=== PATIENT | male | born 1990 | race Caucasian/White ===

== ENCOUNTER 2018-12-14 18:13 | Emergency (ER) | payer SELFPAY ==
[2018-12-14] MEDS ORDERED: SODIUM CHLORIDE 1,000 ML IV STA (18:41)
--- NOTE | 2018-12-14 18:41 | PDOC ---
Rapid Medical Evaluation Time Seen by Provider: 12/14/18 18:38 Medical Evaluation: 12/14/18 18:38 I have performed a brief in-person evaluation of this patient. The patient presents with a chief complaint of: 3 days of NBNB intractable vomiting with periumbilical abdominal pain, no diarrhea, no urinary symptoms, tactile fever, Unable to eat. I have ordered the following: CBC, CMP, Type and screen, PT'PTT, UA, Ucx The patient will proceed to the ED for further evaluation. Discharge Disposition - Diagnosis Abdominal pain Qualifiers: Abdominal location: unspecified location Qualified Code(s): R10.9 - Unspecified abdominal pain - Referrals - Patient Instructions - Post Discharge Activity
[2018-12-14] MEDS ORDERED: ONDANSETRON 4 MG/2 ML VIAL IVPUSH ONE (18:42)
[2018-12-14 18:47] VITALS: TEMP 98.8; BMI 26.2
[2018-12-14 19:25] LABS: BASO % 0.5 % (0-2.0); HEMATOCRIT 51.5 % (35.4-49); HEMOGLOBIN 17.6 GM/dL (11.7-16.9); LYMPH % 11.1 % (8-40); MCHC 34.3 g/dl (32.0-35.9); MEAN CELL VOLUME 90.6 fl (80-96); NEUT % 82.4 % (42.8-82.8); PLATELET COUNT 286 K/MM3 (134-434); RBC 5.68 M/mm3 (4.00-5.60); RDW 13.3 % (11.9-15.9); WHITE BLOOD COUNT 16.4 K/mm3 (4.0-10.0)
[2018-12-14 19:28] LABS: EPI CELLS 5.7 /HPF (0-5/HPF); HYALINE CASTS 41 /lpf (0-8); URINE APPEARANCE CLEAR; URINE BACTERIA 4.1 /hpf (NEGATIVE); URINE BILIRUBIN NEGATIVE (NEGATIVE); URINE COLOR YELLOW; URINE GLUCOSE (UA) NEGATIVE (NEGATIVE); URINE KETONE 1+ (NEGATIVE); URINE LEUK ESTERASE TRACE (NEGATIVE); URINE NITRITE NEGATIVE (NEGATIVE); URINE PROTEIN 1+ (NEGATIVE); URINE RBC 3 /hpf (0-4); URINE UROBILINOGEN 0.2 mg/dL (0.2-1.0); URINE WBC 14 /hpf (0-5)
[2018-12-14 19:47] LABS: ALBUMIN 4.7 g/dl (3.4-5.0); BILIRUBIN,TOTAL 0.6 mg/dL (0.2-1); BLOOD UREA NITROGEN 8.6 mg/dL (7-18); CALCIUM 9.5 mg/dL (8.5-10.1); CREATININE 0.9 mg/dL (0.55-1.3); MAGNESIUM 2.3 mg/dL (1.8-2.4); PHOSPHOROUS 2.6 mg/dL (2.5-4.9); POTASSIUM 3.7 mmol/L (3.5-5.1); TOT PROT 8.2 g/dl (6.4-8.2)
[2018-12-14 20:00] LABS: INR 1.01 (0.83-1.09); PROTHROMBIN TIME (PATIENT) 11.9 SEC (9.7-13.0)
[2018-12-14] MEDS ORDERED: ONDANSETRON 4 MG/2 ML VIAL ONE (21:00)
--- NOTE | 2018-12-14 21:10 | PDOC ---
History of Present Illness - General Chief Complaint: Pain, Acute Stated Complaint: ABDOMINAL PAIN Time Seen by Provider: 12/14/18 18:38 Past History - Past Medical History Allergies/Adverse Reactions: Allergies Allergy/AdvReac Type Severity Reaction Status Date / Time No Known Allergies Allergy Verified 12/14/18 18:40 Home Medications: Ambulatory Orders Ondansetron [Zofran Odt -] 4 mg SL TID #10 od.tablet 12/15/18 COPD: No - Suicide/Smoking/Psychosocial Hx Smoking History: Current every day smoker Number of Cigarettes Smoked Daily: 1 Information on smoking cessation initiated: No Hx Alcohol Use: No Drug/Substance Use Hx: Yes (CANNABIS) *Physical Exam - Vital Signs Last Vital Signs Temp Pulse Resp BP Pulse Ox 98.8 F 80 16 148/98 99 12/14/18 18:36 12/14/18 18:36 12/14/18 18:36 12/14/18 18:36 12/14/18 18:36 ED Treatment Course - LABORATORY CBC & Chemistry Diagram: 12/14/18 19:04 12/14/18 19:04 - ADDITIONAL ORDERS Additional order review: Laboratory Results 12/14/18 12/14/18 12/14/18 19:04 19:04 19:04 PT with INR 11.90 INR 1.01 Sodium Potassium Chloride Carbon Dioxide Anion Gap BUN Creatinine Est GFR (CKD-EPI)AfAm Est GFR (CKD-EPI)NonAf Random Glucose Calcium Phosphorus Magnesium Total Bilirubin AST ALT Alkaline Phosphatase Total Protein Albumin Lipase Urine Color Yellow Urine Appearance Clear Urine pH 6.0 Ur Specific Pearcy 1.026 Urine Protein 1+ H Urine Glucose (UA) Negative Urine Ketones 1+ H Urine Blood Negative Urine Nitrite Negative Urine Bilirubin Negative Urine Urobilinogen 0.2 Ur Leukocyte Esterase Trace Urine WBC (Auto) 14 Urine RBC (Auto) 3 Urine Casts (Auto) 41 U Pathogenic Cast Auto None U Epithel Cells (Auto) 5.7 U Sm Round Cell (Auto) None Urine Bacteria (Auto) 4.1 Blood Type O POSITIVE Antibody Screen Negative 12/14/18 19:04 PT with INR INR Sodium 138 Potassium 3.7 Chloride 101 Carbon Dioxide 29 Anion Gap 7 L BUN 8.6 Creatinine 0.9 Est GFR (CKD-EPI)AfAm 134.24 Est GFR (CKD-EPI)NonAf 115.82 Random Glucose 134 H Calcium 9.5 Phosphorus 2.6 Magnesium 2.3 Total Bilirubin 0.6 AST 21 ALT 35 Alkaline Phosphatase 80 Total Protein 8.2 Albumin 4.7 Lipase 114 Urine Color Urine Appearance Urine pH Ur Specific Pearcy Urine Protein Urine Glucose (UA) Urine Ketones Urine Blood Urine Nitrite Urine Bilirubin Urine Urobilinogen Ur Leukocyte Esterase Urine WBC (Auto) Urine RBC (Auto) Urine Casts (Auto) U Pathogenic Cast Auto U Epithel Cells (Auto) U Sm Round Cell (Auto) Urine Bacteria (Auto) Blood Type Antibody Screen 12/14/18 19:04 RBC 5.68 H MCV 90.6 MCHC 34.3 RDW 13.3 MPV 9.0 Neutrophils % 82.4 Lymphocytes % 11.1 Monocytes % 6.0 Eosinophils % 0.0 Basophils % 0.5 Medical Decision Making - Medical Decision Making HPI: 28yo M with no significant PMH presenting with abdominal, nausea, and vomiting. Patient states he has felt this pain before; was evaluated two years ago and was found to have a urine infection. Since Thursday, patient has had periumbilical abdominal pain that is described as "emptiness." He reports that his pain worsens with eating. patient has been unable to tolerate po intake. He has had bilious vomiting 8-10 times today. Last bowel movement was a half hour before history-taking and was a normaly formed brown stool without blood. Denies urinary symptoms. No sick contacts or recent travel. Denies ETOH or tobacco use but has been a daily marijauna smoker, about one joint per day for the past five years. Reports subjective fevers, chills, headache, and weakness. No chest pain or shortness of breath. PCP: None History obtained with assistance from [employer] interpreter for the deaf: [id number] ROS: Constitutional: +fever, +chills HEENT: no throat pain, no dysphagia Cardiovascular: no chest pain, no palpitations Respiratory: no cough, no shortness of breath Gastrointestinal: +abdominal pain, +vomiting Genitourinary: no dysuria, no hematuria Musculoskeletal: no myalgia, no arthralgia Skin: no rash, no itching Neurologic: no headache, no weakness PE: General: Awake, alert, and fully oriented, in no acute distress Head: No signs of trauma Eyes: EOMI, sclera anicteric ENT: Dry mucus membranes Neck: Normal ROM, supple Lungs: Lungs clear, Normal breath sounds Cardio: Regular rhythm, S1 and S2 present Abdomen: Diffuse tenderness to palpation most focal to periumbilical region. No guarding, no rebound, no masses. No CVA tenderness Extremities: Normal range of motion, Distal pulses present SKIN: Warm, Dry, normal turgor Neurologic: Cranial nerves II through XII grossly intact. Normal speech ED Course/MDM: DDX including but not limited to appendicitis, gastritis, GERD, UTI, pyelonephritis, pancreatitis, cannabis hyperemesis 12/14/18 21:09 CBC WBC 16.4 K/mm3 (4.0-10.0) H 12/14/18 19:04 RBC 5.68 M/mm3 (4.00-5.60) H 12/14/18 19:04 Hgb 17.6 GM/dL (11.7-16.9) H 12/14/18 19:04 Hct 51.5 % (35.4-49) H 12/14/18 19:04 MCV 90.6 fl (80-96) 12/14/18 19: MCH 31.0 pg (25.7-33.7) 12/14/18 19:04 MCHC 34.3 g/dl (32.0-35.9) 12/14/18 19: RDW 13.3 % (11.9-15.9) 12/14/18 19: Plt Count 286 K/MM3 (134-434) 12/14/18 19:04 MPV 9.0 fl (7.5-11.1) 12/14/18 19:04 Absolute Neuts (auto) 13.5 K/mm3 (1.5-8.0) H 12/14/18 19:04 Neutrophils % 82.4 % (42.8-82.8) 12/14/18 19:04 Lymphocytes % 11.1 % (8-40) 12/14/18 19: Monocytes % 6.0 % (3.8-10.2) 12/14/18 19: Eosinophils % 0.0 % (0-4.5) 12/14/18 19:04 Basophils % 0.5 % (0-2.0) 12/14/18 19: Nucleated RBC % 0 % (0-0) 12/14/18 19:04 Leukocytosis, WBC= 16.4 CMP Sodium 138 mmol/L (136-145) 12/14/18 19:04 Potassium 3.7 mmol/L (3.5-5.1) 12/14/18 19:04 Chloride 101 mmol/L (98-107) 12/14/18 19:04 Carbon Dioxide 29 mmol/L (21-32) 12/14/18 19:04 Anion Gap 7 MMOL/L (8-16) L 12/14/18 19:04 BUN 8.6 mg/dL (7-18) 12/14/18 19:04 Creatinine 0.9 mg/dL (0.55-1.3) 12/14/18 19:04 Est GFR (CKD-EPI)AfAm 134.24 12/14/18 19:04 Est GFR (CKD-EPI)NonAf 115.82 12/14/18 19:04 Random Glucose 134 mg/dL (74-106) H 12/14/18 19:04 Calcium 9.5 mg/dL (8.5-10.1) 12/14/18 19:04 Phosphorus 2.6 mg/dL (2.5-4.9) 12/14/18 19:04 Magnesium 2.3 mg/dL (1.8-2.4) 12/14/18 19:04 Total Bilirubin 0.6 mg/dL (0.2-1) 12/14/18 19:04 AST 21 U/L (15-37) 12/14/18 19:04 ALT 35 U/L (13-61) 12/14/18 19:04 Alkaline Phosphatase 80 U/L (45-117) 12/14/18 19:04 Total Protein 8.2 g/dl (6.4-8.2) 12/14/18 19:04 Albumin 4.7 g/dl (3.4-5.0) 12/14/18 19:04 Lipase 114 U/L (73-393) 12/14/18 19:04 Electrolytes unremarkable Cr normal Lipase normal CT neg for acute pathology, per radiology report. Tolerated po challenge of crackers and water 12/15/18 00:11 Sent prescription for zofran Discharged with return precautions CTAP with IV contrast, per radiology: "Sequential axial images were obtained from the domes of the diaphragms through the symphysis pubis following the administration of intravenous contrast material. The lung bases are clear of acute infiltrates or pleural effusions. Mild atelectatic changes are seen anteriorly. The liver, spleen, pancreas, adrenal glands and kidneys demonstrate no significant abnormalities. The gallbladder is clear. There is no evidence of intra-abdominal or retroperitoneal lymphadenopathy or fluid collections. There is no evidence of pneumoperitoneum, bowel obstruction or intra-abdominal abscess. There is no CT evidence of acute appendicitis or diverticulitis. Examination of the pelvis demonstrates no evidence of pelvic masses, fluid collections or lymphadenopathy. IMPRESSION: Essentially normal CT scan of the abdomen and pelvis with no evidence of acute pathology. " *DC/Admit/Observation/Transfer Diagnosis at time of Disposition: Abdominal pain Qualifiers: Abdominal location: unspecified location Qualified Code(s): R10.9 - Unspecified abdominal pain - Discharge Dispostion Disposition: HOME Condition at time of disposition: Improved - Prescriptions Prescriptions: Ondansetron [Zofran Odt -] 4 mg SL TID #10 od.tablet - Referrals - Patient Instructions Printed Discharge Instructions: DI for Abdominal Pain-Adult Additional Instructions: You came into the emergency department for nausea, vomiting, and abdominal pain. We gave you medicine which helped you feel better. Labs and CT scan did not indicate acute pathology. Antinausea prescription sent to your pharmacy. Take as instructed. Follow-up with a primary care provider this week to discuss this ED visit and to further evaluate your symptoms. Your workup is not complete until you do so. You have been referred to the [facility] in case you do not have a primary care doctor. Call and make an appointment at the number provided. Immediate medical attention is required if you develop: severe abdominal pain, high fevers, persistent nausea, vomiting, or any new or concerning symptoms. If you think you are having an emergency, call for emergency medical services or present to the emergency department right away. === Ingres al departamento de emergencias por nuseas, vmitos y dolor abdominal. Le dimos medicamentos que lo ayudaron a sentirse mejor. Los laboratorios y la tomografa computarizada no indicaron patologa aguda. Receta antinausea enviada a horton farmacia. Tmelo segn las instrucciones. Shi un seguimiento con un proveedor de atencin primaria esta semana para analizar esta visita al servicio de urgencias y evaluar ms a fondo kip sntomas. Horton trabajo no est completo hasta que lo shi. Lo horowitz derivado a la [employer] en [place] de que no tenga un mdico de atencin primaria. Llame y shi wm tricia al nmero provisto. Se requiere atencin mdica inmediata si desarrolla: dolor abdominal intenso, fiebre maribel, nuseas persistentes, vmitos o cualquier sntoma nuevo o preocupante. Si prema que tiene wm emergencia, llame a los servicios mdicos de emergencia o presntese en el departamento de emergencias de inmediato. - Post Discharge Activity Forms/Work/School Notes: Back to Work
[2018-12-14] MEDS ORDERED: ACETAMINOPHEN 1000 MG/100 ML VIAL (NON FORMULARY) IVPB ONE (21:38)
[2018-12-14] MEDS ORDERED: ACETAMINOPHEN INJECTION 100 ML IVPB ONE (22:39)
--- NOTE | 2018-12-14 23:41 | PDOC ---
Attending Attestation - Resident Resident Name: Ashley Guzman - ED Attending Attestation I have performed the following: I have examined & evaluated the patient, The case was reviewed & discussed with the resident, I agree w/resident's findings & plan, Exceptions are as noted - HPI HPI: 12/14/18 23:41 28 yo male presents with nausea and vomiting and complained of diffuse abdominal pain - Physicial Exam PE: 12/14/18 23:41 wnwd 28 yo male head ncat neck supple lungs cta b/l cvs [id number] abd diffuse tenderness to palpation,no rebound skin warm and dry ext no edema neuro axox3,ambulatory - Medical Decision Making 12/14/18 23:43 review of labs shows leukocytosis c scan of abd/pel: no appendicitis,no sbo,no cholecystitis,no colitis imp gastritis plan if pt symptoms resolve,will d/c with zofran
[2018-12-15 01:36] VITALS: BP 145/82; PULSE 86
== END 2018-12-15 01:40 | disposition home or self-care (01) ==
LOC: JER 18:13
PROC: 3E033NZ Introduction of Analgesics, Hypnotics, Sedatives into Peripheral Vein, Percutaneous Approach (ICD-10-PCS; principal; 2018-12-14)
PROC: 3E033GC Introduction of Other Therapeutic Substance into Peripheral Vein, Percutaneous Approach (ICD-10-PCS; 2018-12-14)
PROC: 3E0337Z Introduction of Electrolytic and Water Balance Substance into Peripheral Vein, Percutaneous Approach (ICD-10-PCS; 2018-12-14)
DX: R10.9 Unspecified abdominal pain (principal); F17.210 Nicotine dependence, cigarettes, uncomplicated
CPT/HCPCS: 36415; 74177-TC; 80053; 81003; 83690; 83735; 84100; 85025; 85610; 86850; 86900; 86901; 87086; 99283-25; J0131; J7030

== ENCOUNTER 2022-06-05 03:39 | Emergency (ER) | payer SELFPAY ==
[2022-06-05 03:51] VITALS: RESP 18; BMI 29.4
[2022-06-05] MEDS ORDERED: SODIUM CHLORIDE 0.9% 500 ML INFUS.BAG IV ONE (04:21)
[2022-06-05] MEDS ORDERED: ACETAMINOPHEN 1000 MG/100 ML BAG IVPB ONE (04:21)
[2022-06-05] MEDS ORDERED: MAG HYDROX/AL HYDROX/SIMETH 30 ML UNIT-DOSE CUP PO ONE (04:21)
[2022-06-05] MEDS ORDERED: FAMOTIDINE 20 MG/50 ML IVPB 20 MG/50 ML MG IVPB ONE ×2 (04:21→04:53)
[2022-06-05] MEDS ORDERED: MAG HYDROX/AL HYDROX/SIMETH 30 ML UNIT-DOSE CUP ONE (04:53)
[2022-06-05] MEDS ORDERED: ACETAMINOPHEN INJECTION 100 ML IVPB ONE (04:53)
[2022-06-05 05:21] LABS: BASO % 0.6 % (0-2.0); EOS % 0.2 % (0-4.5); HEMATOCRIT 47.9 % (35.4-49); HEMOGLOBIN 16.8 GM/dL (11.7-16.9); LYMPH % 14.3 % (8-40); MCH 31.6 pg (25.7-33.7); MEAN CELL VOLUME 90.2 fl (80-96); MEAN PLT VOLUME 8.7 fl (7.5-11.1); MONO % 5.3 % (3.8-10.2); NEUT % 79.6 % (42.8-82.8); PLATELET COUNT 287 10^3/uL (134-434); RBC 5.31 M/mm3 (4.00-5.60); WHITE BLOOD COUNT 13.8 K/mm3 (4.0-10.0)
[2022-06-05 05:56] LABS: ALBUMIN 4.4 g/dl (3.4-5.0)
[2022-06-05 05:57] LABS: BLOOD UREA NITROGEN 8.5 mg/dL (7-18)
[2022-06-05 05:59] LABS: CREATININE 0.7 mg/dL (0.55-1.3)
[2022-06-05 06:01] LABS: BILIRUBIN,TOTAL 0.7 mg/dL (0.2-1); TOT PROT 7.6 g/dl (6.4-8.2)
[2022-06-05 11:42] VITALS: BP 142/90; PULSE 65; TEMP 98.8
== END 2022-06-05 11:45 | disposition home or self-care (01) ==
LOC: JER 03:39
PROC: 3E033GC Introduction of Other Therapeutic Substance into Peripheral Vein, Percutaneous Approach (ICD-10-PCS; principal; 2022-06-05)
DX: R10.13 Epigastric pain (principal)
CPT/HCPCS: 36415; 71046-TC-FY; 76705-TC; 80053; 83690; 84484; 85025; 93005; 93010; 99285-25

== ENCOUNTER 2022-06-06 06:47 | Emergency (ER) | payer SELFPAY ==
[2022-06-06 07:01] VITALS: BMI 26.9
[2022-06-06] MEDS ORDERED: FAMOTIDINE 20 MG/50 ML IVPB 20 MG/50 ML MG IVPB ONE ×2 (07:59→08:19)
[2022-06-06] MEDS ORDERED: LACTATED RINGERS SOLUTION 1,000 ML/1,000 ML INFUS.BAG IV SCH (08:00)
[2022-06-06] MEDS ORDERED: HALOPERIDOL DECANOATE 500 MG/5ML MDV IM ONE (08:03)
[2022-06-06] MEDS ORDERED: HALOPERIDOL LACTATE 5 MG/ML IM ONE (08:19)
[2022-06-06 09:54] LABS: BASO % 0.6 % (0-2.0); EOS % 0.1 % (0-4.5); HEMATOCRIT 46.1 % (35.4-49); HEMOGLOBIN 16.1 GM/dL (11.7-16.9); LYMPH % 15.7 % (8-40); MCH 31.4 pg (25.7-33.7); MCHC 34.9 g/dl (32.0-35.9); MEAN PLT VOLUME 9.3 fl (7.5-11.1); NEUT % 78.6 % (42.8-82.8); PLATELET COUNT 294 10^3/uL (134-434); RBC 5.13 M/mm3 (4.00-5.60); RDW 13.3 % (11.9-15.9); WHITE BLOOD COUNT 11.4 K/mm3 (4.0-10.0)
[2022-06-06 10:00] LABS: INR 1.01 (0.83-1.09); PROTHROMBIN TIME (PATIENT) 11.7 SEC (9.7-13.0)
[2022-06-06 10:03] LABS: ACTIVATED PTT 31.2 SECONDS (25.2-36.5)
[2022-06-06 10:15] LABS: CALCIUM 8.7 mg/dL (8.5-10.1)
[2022-06-06 10:16] LABS: ALBUMIN 4.1 g/dl (3.4-5.0); BLOOD UREA NITROGEN 8.4 mg/dL (7-18)
[2022-06-06 10:19] LABS: CREATININE 0.7 mg/dL (0.55-1.3)
[2022-06-06 10:20] LABS: BILIRUBIN,TOTAL 0.6 mg/dL (0.2-1)
[2022-06-06 10:21] LABS: TOT PROT 7.2 g/dl (6.4-8.2)
[2022-06-06 10:43] VITALS: BP 141/75; PULSE 73; RESP 18; TEMP 98.3
== END 2022-06-06 11:26 | disposition home or self-care (01) ==
LOC: JER 06:47
PROC: 3E033GC Introduction of Other Therapeutic Substance into Peripheral Vein, Percutaneous Approach (ICD-10-PCS; principal; 2022-06-06)
PROC: 3E023GC Introduction of Other Therapeutic Substance into Muscle, Percutaneous Approach (ICD-10-PCS; 2022-06-06)
DX: R10.13 Epigastric pain (principal); R11.2 Nausea with vomiting, unspecified
CPT/HCPCS: 36415; 74177-TC; 80053; 83690; 85025; 85610; 85730; 86850; 86900; 86901; 99285-25; Q9967